=== PATIENT | female | born 1990 | race Caucasian/White ===

== ENCOUNTER 2022-03-20 10:32 | Emergency (ER) | payer OTHER, SELFPAY ==
--- NOTE | ~2022-03-20 | XR_ITS ---
XR ankle LT min 3V DATE: 03/20/2022 11:55 INDICATION: Left ankle pain. Ankle gave out. Lateral swelling. TECHNIQUE: 4 views COMPARISON: None FINDINGS: There is mild lateral soft tissue swelling. No fracture or dislocation of the ankle or disr uption of the ankle mortise. No periosteal reaction or bone destruction. IMPRESSION: Mild lateral soft tissue swelling Reviewed, dictated and finalized at location A. [employer]
[2022-03-20 10:38] VITALS: BP 127/88; PULSE 97; RESP 18; TEMP 36.6; O2SAT 98
--- NOTE | 2022-03-20 12:51 | ED.LOWEXIN ---
HPI - Extremity Injury (Lower) General Chief Complaint: Extremity Injury, Lower Stated Complaint: L. ankle injury Time Seen by Provider: 03/20/22 11:33 Source: patient Mode of arrival: ambulatory Limitations: no limitations History of Present Illness HPI Narrative: Patient is a 32-year-old female who presents the ED with report of left ankle pain. Patient reports she was sitting in a chair last night when her left leg fell asleep. When she tried to stand up, she inverted her left ankle and rolled it. She complains of pain and swelling to her left lateral ankle. She has been able to ambulate, but has some discomfort with this. She took Aleve last night, but has not tried anything for pain today. Denies any other injuries. Denies numbness, tingling, weakness. Related Data Home Medications Medication Instructions Recorded Confirmed levonorgestrel 17.5 mcg/24 hrs 1 device intrauterine ONCE 11/17/21 11/17/21 (5yrs) 19.5mg intrauterine device (Kyleena) Allergies Allergy/AdvReac Type Severity Reaction Status Date / Time No Known Allergies Allergy Unverified 11/17/21 15:28 Review of Systems Review of Systems: CONSTITUTIONAL: Denies fever, chills, or sweats. SKIN: Reports swelling to left lateral ankle. MUSCULOSKELETAL: Reports pain to left lateral ankle. NEUROLOGIC: Denies tingling, numbness, or weakness. All systems reviewed & are unremarkable except as noted in HPI and below PMFSH Past Medical History Medical History Ronal's disease Surgical History Surgical History Hx of myringotomy Family History Family History Father Diabetes mellitus Mother Rheumatoid arthritis Social History Social History Smoking status: Never smoker Second hand tobacco smoke exposure: No Alcohol intake: current Substance use: never Substance use type: does not use Gender identity (if verbalized by the patient): Female Sexual Orientation (if Verbalized by the Patient): Straight or Heterosexual Exam Narrative: GENERAL: Well appearing, well-nourished, non-toxic, in no acute distress. HEAD: Normocephalic, atraumatic. NECK: Supple. No adenopathy, no masses. RESPIRATORY: Airway patent, respirations nonlabored. CARDIOVASCULAR: Regular rate and rhythm without murmurs, rubs, or gallops. Pedal pulses 2+ and equal bilaterally. MUSCULOSKELETAL: Moves all extremities. Strength/ROM intact without gross deformities. Mild swelling noted over left lateral malleoli, with diffuse tenderness, more anteriorly, extending into anterior left ankle mortise. No tenderness along base of fifth metatarsal. No tenderness along dorsal metatarsals. No Achilles tendon tenderness. Minimal tenderness over medial malleoli, no significant swelling. SKIN: Warm, dry, normal color. No rashes. NEURO: A&O X3. Speech clear. Cranial nerves II-XII grossly intact. No ataxic movements. PSYCHIATRIC: Appropriate mood and affect. Normal interaction. Course Vital Signs Vital signs: Vital Signs Temperature 97.8 F 03/20/22 10:38 Pulse Rate 97 03/20/22 10:38 Respiratory Rate 18 03/20/22 10:38 Blood Pressure 127/88 03/20/22 10:38 Pulse Oximetry 98 03/20/22 10:38 Oxygen Delivery Room Air 03/20/22 10:38 Temperature 97.8 F 03/20/22 10:38 Pulse Rate 97 03/20/22 10:38 Respiratory Rate 18 03/20/22 10:38 Blood Pressure 127/88 03/20/22 10:38 Pulse Oximetry 98 03/20/22 10:38 Oxygen Delivery Room Air 03/20/22 10:38 MDM - Extremity Injury (Lower) MDM Narrative Medical decision making narrative: Patient presented to ED with left lateral ankle pain status post inversion injury last night. Patient's injury is consistent with musculoskeletal etiology. No signs of neurologic or
== END 2022-03-20 13:08 | disposition home or self-care (01) ==
PROVIDERS: Emergency Provider Emergency Medicine; PCP Family Medicine
DX: S93.402A Sprain of unspecified ligament of left ankle, initial encounter (principal); E06.3 Autoimmune thyroiditis; X50.9XXA Other and unspecified overexertion or strenuous movements or postures, initial encounter
CPT/HCPCS: 73610; 99283

== ENCOUNTER 2023-09-22 09:08 | Outpatient (CLI) | payer OTHER, SELFPAY ==
[2023-09-22 10:03] LABS: Strep Group A RT-PCR NOT DETECTED (Negative)
== END 2023-09-22 09:09 | disposition home or self-care (01) ==
LOC: ANHLAB 09:08
PROVIDERS: PCP Family Medicine; Visit Provider Physician Assistant Medical
DX: R50.9 Fever, unspecified (principal); J02.9 Acute pharyngitis, unspecified
CPT/HCPCS: 87651